=== PATIENT | male | born 1960 | race Caucasian/White ===

== ENCOUNTER 2018-05-21 03:26 | Emergency (ER) | payer MEDICAID ==
[~2018-05-21] VITALS: Ht 188 cm; Wt 90.0 kg
--- NOTE | 2018-05-21 03:37 | NUR ---
Provider to bedside for pt kalie christianson. Pt reports having R knee pain x 10 years, states injured at time of pain starting. pt states he tore a muscle in it and thinks it's getting worse. Pt states he was seen x4 days ago at [facility] and given meds for gout which pt did not take. pt states he is out of his [place]. Pt denies taking any meds at this time, states he is not from [place] but came here to get , doesn't plan on staying. Pt VSS. Pt a/ox4, has had 4 mixed drinks at [facility] where pt is staying. Breathing E/U. Pt converses well with staff. Pt pleasant and cooperative, smells of ETOH.
--- NOTE | 2018-05-21 03:42 | NUR ---
Pt snoring at this time.
--- NOTE | 2018-05-21 03:50 | NUR ---
Pt has strong odor, appears homeless.
--- NOTE | 2018-05-21 04:43 | NUR ---
pt continues to sleep, awakes easily. snoring while sleeping. VSS.
--- NOTE | 2018-05-21 04:54 | NUR ---
Provider to bedside for pt update complete. 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
--- NOTE | 2018-05-21 05:05 | NUR ---
Pt up with steady gait getting dressed.
--- NOTE | 2018-05-21 05:21 | NUR ---
Knee immobilizer in place, pt demonstrated corrected placement taken off and on. pt able to ambulate with steady gait out of dept with crutches. d/c paperwork in hand.
[2018-05-21 05:22] VITALS: BP 115/72
== END 2018-05-21 05:25 | disposition home or self-care (01) ==
LOC: ED 04:06
DX: S89.91XA Unspecified injury of right lower leg, initial encounter (principal); X58.XXXA Exposure to other specified factors, initial encounter; Y93.89 Activity, other specified; Y92.59 Other trade areas as the place of occurrence of the external cause; Y99.8 Other external cause status
CPT/HCPCS: 29505; 99283